=== PATIENT | male | born 2000 | race Caucasian/White ===

== ENCOUNTER 2022-11-27 22:04 | Inpatient (IN) | payer OTHER ==
[2022-11-27 22:41] VITALS: BMI 24.4
[2022-11-27] MEDS ORDERED: DICYCLOMINE HCL 10 MG CAPSULE PO PRN (23:14)
[2022-11-27] MEDS ORDERED: ACETAMINOPHEN 325 MG TABLET (FP) PO PRN ×2 (23:14)
[2022-11-27] MEDS ORDERED: IBUPROFEN 600 MG TABLET (FP) PO PRN (23:14)
[2022-11-27] MEDS ORDERED: MAG HYDROX/AL HYDROX/SIMETH 30 ML UNIT-DOSE CUP PO PRN (23:14)
[2022-11-27] MEDS ORDERED: IBUPROFEN 400 MG TABLET (FP) PO PRN (23:14)
[2022-11-27] MEDS ORDERED: MAGNESIUM HYDROX 2400MG/30ML ORAL SUSPENSION 30 ML CUP PO PRN (23:14)
[2022-11-27] MEDS ORDERED: ONDANSETRON *ODT* 4 MG TABLET SL PRN (23:14)
[2022-11-27] MEDS ORDERED: NICOTINE 10 MG CARTRIDGE (INHALER) IH PRN (23:14)
[2022-11-27] MEDS ORDERED: METHOCARBAMOL 500 MG TABLET PO PRN (23:14)
[2022-11-27] MEDS ORDERED: BENZOCAINE/MENTHOL (CHLORASEPTIC ) LOZENGE MM PRN (23:14)
[2022-11-27] MEDS ORDERED: NALOXONE HCL (KLOXXADO) 8 MG SPRAY NS PRN (23:14)
[2022-11-27] MEDS ORDERED: LOPERAMIDE HCL 2 MG CAPSULE PO PRN (23:14)
[2022-11-27] MEDS ORDERED: POLYETHYLENE GLYCOL (HEALTHYLAX) 3350 17 GM PACKET PO PRN (23:14)
[2022-11-27] MEDS ORDERED: BISMUTH SUBSALICYLATE 524 MG/30 ML PO PRN (23:14)
[2022-11-27] MEDS ORDERED: ALBUTEROL SO4 HFA INHALER IH PRN (23:20)
[2022-11-28 09:47] VITALS: BP 122/98; PULSE 105; RESP 20; TEMP 98.2
[2022-11-28] MEDS ORDERED: PRENATAL VITAMINS W/ FOLIC ACID TABLET (FP) PO SCH (10:00)
[2022-11-28] MEDS ORDERED: NICOTINE 21 MG/24 HOURS TOPICAL PATCH TD SCH (10:00)
[2022-11-28] MEDS ORDERED: cloNIDine HCL 0.1 MG TABLET PO PRN (10:59)
[2022-11-28 12:10] LABS: HEMATOCRIT 38.7 % (35.4-49); HEMOGLOBIN 13.4 GM/dL (11.7-16.9); MCH 28.3 pg (25.7-33.7); MCHC 34.6 g/dl (32.0-35.9); MEAN CELL VOLUME 81.8 fl (80-96); PLATELET COUNT 259 10^3/uL (134-434); RBC 4.74 M/mm3 (4.00-5.60); RDW 13.7 % (11.9-15.9)
[2022-11-28 12:29] LABS: BLOOD UREA NITROGEN 13.6 mg/dL (7-18)
[2022-11-28 12:32] LABS: ALBUMIN 3.4 g/dl (3.4-5.0); CALCIUM 8.9 mg/dL (8.5-10.1)
[2022-11-28 12:37] LABS: BILIRUBIN,TOTAL 0.3 mg/dL (0.2-1)
[2022-11-28] MEDS ORDERED: MELATONIN 5 MG TABLETS PO SCH (22:00)
[2022-11-28] MEDS ORDERED: THIAMINE HCL 100 MG TABLET (FP) PO SCH (22:00)
[2022-11-28] MEDS ORDERED: traZODone HCL 100 MG TABLET (FP) PO SCH (22:00)
[2022-11-29] MEDS ORDERED: methaDONE HCL 10 MG TABLET (FOR DETOX USE ONLY) PO ONE (10:00)
== END 2022-11-28 13:15 | disposition left against medical advice (07) | DRG 770 ==
LOC: YASAS 22:04 → Y6N 23:24
PROVIDERS: ADMIT Allergy & Immunology; ATTEND Surgery
PROC: HZ2ZZZZ Detoxification Services for Substance Abuse Treatment (ICD-10-PCS; principal; 2022-11-27)
DX: F11.23 Opioid dependence with withdrawal (principal); F14.20 Cocaine dependence, uncomplicated; F16.10 Hallucinogen abuse, uncomplicated; F12.20 Cannabis dependence, uncomplicated; F17.210 Nicotine dependence, cigarettes, uncomplicated; F19.282 Other psychoactive substance dependence with psychoactive substance-induced sleep disorder; F19.24 Other psychoactive substance dependence with psychoactive substance-induced mood disorder; F44.81 Dissociative identity disorder; F41.9 Anxiety disorder, unspecified; F31.9 Bipolar disorder, unspecified; F90.9 Attention-deficit hyperactivity disorder, unspecified type; M41.9 Scoliosis, unspecified; H91.92 Unspecified hearing loss, left ear; J45.20 Mild intermittent asthma, uncomplicated; Z28.310 Unvaccinated for COVID-19; Z28.9 Immunization not carried out for unspecified reason
CPT/HCPCS: 36415; 80053; 85027; 86780; 93005; 93010; C9803-CS; U0003; U0005